=== PATIENT | female | born 1965 | race American Indian/Alaskan Native ===

== ENCOUNTER 2016-12-22 11:11 | Emergency (ER) | payer BC ==
[2016-12-22 11:23] VITALS: RESP 20
[2016-12-22] MEDS ORDERED: Sodium Chloride 0.9% 1,000 ML ONE (11:58)
[2016-12-22] MEDS ORDERED: Belladonna-Phenobarbital ONE (11:58)
--- NOTE | 2016-12-22 12:03 | C.PDOC ---
History Of Present Illness 51-year-old female, presents to the emergency department with complaints of abdominal pain. Patient states she has been experiencing left-lower quadrant abdominal pain since last night. Pain is intermittent in nature,radiating to lower-back and associated with non-bloody/non-bilious vomiting and watery/non- bloody diarrhea. Denies fever, symptoms, any pain in ED, or any other associated symptoms. No other complaints at this time. Time Seen by Provider: 12/22/16 11:33 Chief Complaint (Nursing): Abdominal Pain History Per: Patient History/Exam Limitations: no limitations Onset/Duration Of Symptoms: Hrs Current Symptoms Are (Timing): Still Present Severity: Moderate Past Medical History Reviewed: Historical Data, Nursing Documentation, Vital Signs Vital Signs: Last Vital Signs Temp 98.4 F 12/22/16 11:17 Pulse 99 H 12/22/16 11:17 Resp 20 12/22/16 11:17 BP 109/71 12/22/16 11:17 Pulse Ox 99 12/22/16 12:35 - Medical History PMH: Arthritis, Back Problems Surgical History: Appendectomy Family History: States: Unknown Family Hx - Social History Hx Alcohol Use: Yes Hx Substance Use: No - Immunization History Hx Tetanus Toxoid Vaccination: No Hx Influenza Vaccination: No Hx Pneumococcal Vaccination: No Review Of Systems Except As Marked, All Systems Reviewed And Found Negative. Constitutional: Negative for: Fever, Chills Cardiovascular: Negative for: Chest Pain, Palpitations Gastrointestinal: Positive for: Nausea, Vomiting, Abdominal Pain, Diarrhea Genitourinary: Negative for: Dysuria, Frequency Musculoskeletal: Negative for: Back Pain Skin: Negative for: Rash Physical Exam - Physical Exam Appears: Non-toxic, No Acute Distress Skin: Warm, Dry, No Rash Head: Atraumatic, Normacephalic Eye(s): bilateral: Normal Inspection, PERRL Nose: Normal Oral Mucosa: Moist Lips: Normal Appearing Neck: Normal ROM Cardiovascular: Rhythm Regular Respiratory: Normal Breath Sounds, No Accessory Muscle Use Gastrointestinal/Abdominal: Bowel Sounds, Soft, No Tenderness, No Distention, No Guarding, No Rebound Extremity: Normal ROM Neurological/Psych: Oriented x3, Normal Speech Gait: Steady ED Course And Treatment - Laboratory Results Result Diagrams: 12/22/16 12:10 12/22/16 12:10 O2 Sat by Pulse Oximetry: 99 Medical Decision Making Medical Decision Making: Plan: * CMP, Lipase * CBC * IVF, Zofran, * UA, Urine Preg * Reassess and Disposition Pt feels better, abd soft nontender. I d/w pt lab results incl risks and benefits of plan. Pt understands to return to ER if increasing pain, fever, persistent vomiting or worse. Pt agrees with plan. Disposition Counseled Patient/Family Regarding: Diagnosis, Need For Followup - Disposition Disposition: HOME/ ROUTINE Disposition Time: 13:53 Condition: STABLE Additional Instructions: Increase PO fluids9 Gatorade, sprite, clear soup) May have white rice, bread, apple Avoid dairy or solid food Return to ER if worse Prescriptions: Ondansetron [Zofran Odt] 4 mg PO TID #6 odt Phenobarb/Hyoscy/Atropine/Scop [ Tablet] 16.2 mg PO BID #10 tablet Instructions: Gastroenteritis (ED) Forms: [employer] ([place]) - Clinical Impression Clinical Impression: Gastroenteritis - Scribe Statement The provider has reviewed the documentation as recorded by the Bryan Barreto All medical record entries made by the Scribe were at my direction and personally dictated by me. I have reviewed the chart and agree that the record accurately reflects my personal performance of the history, physical exam, medical decision making, and the department course for this patient. I have also personally directed, reviewed, and agree with the discharge instructions and disposition.
[2016-12-22] MEDS ORDERED: Sodium Chloride 0.9% 1,000 ML IV ONE (12:04)
[2016-12-22] MEDS ORDERED: Belladonna-Phenobarbital PO STA (12:04)
[2016-12-22 12:17] LABS: RBC URINE 1 /hpf (0-3); URINE BILIRUBIN NEGATIVE (NEGATIVE); URINE BLOOD NEGATIVE (NEGATIVE); URINE COLOR Yellow (YELLOW); URINE GLUCOSE (UA) NORMAL (Normal); URINE KETONE TRACE mg/dL (NEGATIVE); URINE LEUKOCYTE ESTERASE NEG Leu/uL (Negative); URINE PROTEIN 1+ mg/dL (NEGATIVE); URINE UROBILINOGEN NORMAL mg/dL (0.2-1.0); WBC URINE < 1 /hpf (0-5)
[2016-12-22 12:20] LABS: BASO % 0.5 % (0.0-2.0); CHLORIDE 97 mmol/L (98-107); EOS % 0.5 % (0.0-4.0); HEMATOCRIT 38.4 % (34.0-47.0); LYMPH # 0.6 K/uL (1.0-4.3); LYMPH % 10.6 % (20.0-40.0); MEAN CELL VOLUME 88.9 fL (81.0-99.0); MEAN CORPUSCULAR HEMOGLOBIN 29.4 pg (27.0-31.0); MEAN CORPUSCULAR HGB CONC 33.1 g/dL (33.0-37.0); MEAN PLATELET VOLUME 9.3 fL (7.2-11.7); MONO # 0.3 K/uL (0.0-0.8); MONO % 5.6 % (0.0-10.0); RED CELL DISTRIBUTION WIDTH 13.7 % (11.5-14.5); WHITE BLOOD COUNT 6.1 K/uL (4.8-10.8)
[2016-12-22 12:21] LABS: POTASSIUM 3.7 mmol/L (3.6-5.2); SODIUM 133 mmol/L (132-148)
[2016-12-22 12:23] LABS: BILIRUBIN,TOTAL 1.1 mg/dL (0.2-1.3); GFR AFRICAN-AMERICAN > 60
[2016-12-22 12:24] LABS: ALB/GLOB RATIO 1.2 (1.0-2.1); ALKALINE PHOSPHATASE 63 U/L (38-126); ALT/SGPT 26 U/L (9-52); AST/SGOT 25 U/L (14-36); BLOOD UREA NITROGEN 11 mg/dL (7-17); CALCIUM 7.9 mg/dl (8.6-10.4); CARBON DIOXIDE 29 mmol/L (22-30); GLUCOSE,RANDOM 82 mg/dL (65-105)
[2016-12-22 14:09] VITALS: BP 108/68; PULSE 92; TEMP 98.5; O2SAT 96
== END 2016-12-22 14:26 | disposition home or self-care (01) ==
LOC: C.ER 11:11
DX: K52.9 Noninfective gastroenteritis and colitis, unspecified (principal)
CPT/HCPCS: 80053; 81001; 83690; 84703; 85025; 96361; 96374; 99285; J2405; J7040